=== PATIENT | female | born 1970 | race Caucasian/White ===

== ENCOUNTER 2024-09-03 17:19 | Emergency (ER) | payer OTHER ==
[2024-09-03] MEDS ORDERED: Ibuprofen 600 MG TAB ONE (19:12)
== END 2024-09-03 20:27 | disposition home or self-care (01) ==
LOC: MADERS 17:19
DX: S39.012A Strain of muscle, fascia and tendon of lower back, initial encounter (principal); M51.86 Other intervertebral disc disorders, lumbar region; F17.210 Nicotine dependence, cigarettes, uncomplicated; X50.9XXA Other and unspecified overexertion or strenuous movements or postures, initial encounter; Y99.0 Civilian activity done for income or pay
CPT/HCPCS: 72100; 99283